=== PATIENT | female | born 1945 | race Caucasian/White ===

== ENCOUNTER → 2021-03-05 | Outpatient (CLI) | payer MEDICARE, OTHER ==
--- NOTE | 2021-03-06 08:05 | RAD ---
Exam:Left ribs with PA chest Date: 03/05/2021 3:00 PM Comparison: No prior Indication: Reason: STRAIN RIGHT SIDE, 7TH-8TH PAIN / Spl. Instructions: / History: Findings/ Impression: The heart is not enlarged. Mediastinal and hilar contours are normal. No focal parenchymal airspace o pacity. No pleural effusion or pneumothorax. AP, Oblique and Spot images of the right ribs demonstrated trace offset at the lateral aspect of the right fourth and fifth ribs suspicious for nondisplaced fracture.Negative focal pleural elevation. S ymmetrical intercostal spacing. It is of note that an acute non-displaced rib fracture can be in-apparent on initial post-trauma imag ing. Electronically signed by: Jac Byrd MD (03/06/2021 8:03 AM) [id number]
== END ==
LOC: RAD 14:48
PROVIDERS: ATTEND Family Medicine
DX: R07.81 Pleurodynia (principal)
CPT/HCPCS: 71101